=== PATIENT | male | born 1945 | race Caucasian/White ===

== ENCOUNTER 2018-08-22 16:52 | Observation (INO) ==
[2018-08-22 18:12] LABS: Basophils # 0.1 10*3/uL (0.0-0.2); Basophils % 0.6 % (0.0-0.8); Eosinophils # 0.2 10*3/uL (0.0-0.87); Eosinophils % 2.8 % (0.00-10.9); Hematocrit 39.2 VOL% (42.0-52.0); Hemoglobin 13.5 GM/DL (14.0-18.0); Immature Granulocytes % 1.6 %; Immature Granulocytes Absolute 0.13 #; Lymphocytes # 1.7 10*3/uL (1.4-4.0); Lymphocytes % 19.9 % (21.2-54.2); Mean Corpuscular HGB Conc 34.4 GM/DL (32-36); Mean Corpuscular Volume 87.3 FL (87-102); Mean Platelet Volume 11.2 FL (9.6-12.0); Monocytes % 6.7 % (1.7-12.7); Neutrophils % 68.4 % (38.7-73.9); Platelet Count 118 T/CUMM (130-400); Red Blood Count 4.49 MC/CUMM (3.8-5.5); Red Cell Distribution Width 12.7 % (9.3-17.3); White Blood Count 8.4 T/CUMM (4-12)
[2018-08-22 18:28] LABS: Albumin 3.7 G/DL (3.4-5.0); Bilirubin,Total 0.4 MG/DL (0.2-1.0); Calcium 8.4 MG/DL (8.5-10.1); Osmolality,Calculated 286.1 MOS/KG (273-304); Total Protein 6.9 G/DL (6.4-8.3)
[2018-08-22 18:31] LABS: Apearance,Urine CLEAR (Clear); Bilirubin,Urine Negative (Negative); Blood, Urine Negative (Negative); Glucose,Urine (UA) >=500 mg/dL (Negative); Ketones,Urine Negative (Negative); Nitrite,Urine Negative (Negative); Protein,Urine Negative; RBC,Urine <1 /HPF (0-4); Urine Color Straw (Yellow); Urine Specific Gravity 1.021 (1.001-1.035); Urine Urobilinogen < 2.0 EU/DL (0.2-1.0); WBC,Urine <1 /HPF (0-6)
[2018-08-22 18:40] LABS: Barbiturates Screen,Urine Negative (Negative); Benzodiazepines Screen,Urine Negative (Negative); Cannabinoid Screen,Urine Negative (Negative); Opiate Screen,Urine Negative (Negative); Phencyclidine Screen,Urine Negative (Negative)
[2018-08-22] MEDS ORDERED: CEFTAROLINE 600 MG in SODIUM CHLORIDE 0.9% 100 ML IV STA (19:29)
[2018-08-22 19:48] LABS: CKMB % 3.6 %; Troponin I < 0.015 NG/ML (0.00-0.045)
[2018-08-22] MEDS ORDERED: GLUCAGON 1 MG VIAL IM PRN (20:18)
[2018-08-22] MEDS ORDERED: INSULIN REGULAR 100 UNIT/ML IV ONE (20:18)
[2018-08-22] MEDS ORDERED: ONDANSETRON 4 MG/2 ML VIAL IV PRN (20:18)
[2018-08-22] MEDS ORDERED: DEXTROSE 50% 25 GM/50 ML SYRINGE IV PRN (20:18)
[2018-08-22] MEDS ORDERED: ACETAMINOPHEN 325 MG TABLET PO PRN (20:18)
[2018-08-22] MEDS ORDERED: ENOXAPARIN 40 MG/0.4 ML SYRINGE SUBCUT SCH (21:00)
[2018-08-22] MEDS: SODIUM CHLORIDE 0.9% 1,000 ML IV SCH (23:00)
[2018-08-22] MEDS: SULFAMETHOX/TRIMETHOPRIM 800-160 MG TABLET PO SCH (23:01)
[2018-08-22] MEDS: INSULIN REGULAR 100 UNIT/ML SUBCUT SCH (23:23)
[2018-08-22] MEDS ORDERED: diphenhydrAMINE CAP 50 MG CAPSULE PO ONE (23:24)
[2018-08-23 05:10] LABS: Basophils # 0.1 10*3/uL (0.0-0.2); Basophils % 0.9 % (0.0-0.8); Eosinophils # 0.3 10*3/uL (0.0-0.87); Eosinophils % 4.6 % (0.00-10.9); Hematocrit 35.1 VOL% (42.0-52.0); Hemoglobin 12.2 GM/DL (14.0-18.0); Immature Granulocytes % 1.5 %; Lymphocytes # 1.6 10*3/uL (1.4-4.0); Lymphocytes % 23.7 % (21.2-54.2); Mean Corpuscular HGB Conc 34.8 GM/DL (32-36); Mean Corpuscular Volume 86.7 FL (87-102); Mean Platelet Volume 11.1 FL (9.6-12.0); Monocytes % 8.8 % (1.7-12.7); Neutrophils % 60.5 % (38.7-73.9); Red Blood Count 4.05 MC/CUMM (3.8-5.5); Red Cell Distribution Width 12.6 % (9.3-17.3); White Blood Count 6.8 T/CUMM (4-12)
[2018-08-23 05:21] LABS: Platelet Count 95 T/CUMM (130-400)
[2018-08-23 05:30] LABS: Hypochromasia 1+; Platelet Estimate Decreased
[2018-08-23 05:33] LABS: Bilirubin,Total 0.4 MG/DL (0.2-1.0); Calcium 8.5 MG/DL (8.5-10.1); Osmolality,Calculated 282.4 MOS/KG (273-304); Risk Ratio 4.45; Total Protein 5.8 G/DL (6.4-8.3); VLDL CHOLESTEROL 33.2 MG/DL
[2018-08-23] MEDS ORDERED: LISINOPRIL 5 MG TABLET PO SCH (09:00)
[2018-08-23] MEDS: INSULIN REGULAR 100 UNIT/ML SUBCUT SCH ×2 (09:24→12:25)
[2018-08-23] MEDS: SULFAMETHOX/TRIMETHOPRIM 800-160 MG TABLET PO SCH (09:24)
[2018-08-23 12:07] VITALS: BP 176/74
[2018-08-23] MEDS: SODIUM CHLORIDE 0.9% 1,000 ML IV SCH (12:08)
== END 2018-08-23 12:53 | disposition home or self-care (01) ==
LOC: N.ED 16:52 → N.EDINP 16:52 → N.2E 22:01
PROVIDERS: ADMIT Emergency Medicine; ATTEND Emergency Medicine

== ENCOUNTER 2022-02-01 19:14 | Inpatient (IN) ==
[2022-02-01] MEDS ORDERED: SODIUM CHLORIDE 0.9% 500 ML IV STA (20:03)
[2022-02-01] MEDS ORDERED: ONDANSETRON 4 MG/2 ML VIAL IV STA (20:03)
[2022-02-01] MEDS ORDERED: PANTOPRAZOLE 40 MG VIAL IV STA (20:03)
[2022-02-01] MEDS ORDERED: ACETAMINOPHEN 325 MG TABLET PO PRN (21:34)
[2022-02-01] MEDS ORDERED: GLUCAGON 1 MG VIAL IM PRN (21:34)
[2022-02-01] MEDS ORDERED: ONDANSETRON 4 MG/2 ML VIAL IV PRN (21:34)
[2022-02-01] MEDS ORDERED: HYDROmorphone 1 MG/1 ML SYRINGE IV PRN (21:34)
[2022-02-01] MEDS ORDERED: DEXTROSE 10% 250 ML BAG IV PRN (21:53)
[2022-02-01 21:59] LABS: Basophils % 0.2 % (0.0-0.8); Eosinophils % 0.4 % (0.00-10.9); Hematocrit 36.8 VOL% (42.0-52.0); Hemoglobin 11.2 GM/DL (14.0-18.0); Immature Granulocytes % 1.2 %; Immature Granulocytes Absolute 0.11 #; Lymphocytes # 1.2 10*3/uL (1.4-4.0); Lymphocytes % 12.7 % (21.2-54.2); Mean Corpuscular HGB Conc 30.4 GM/DL (32-36); Mean Corpuscular Volume 70.5 FL (87-102); Mean Platelet Volume 10.3 FL (9.6-12.0); Monocytes # 0.7 10*3/uL (0.11-0.8); Monocytes % 7.1 % (1.7-12.7); Neutrophils % 78.4 % (38.7-73.9); Platelet Count 182 T/CUMM (130-400); Red Blood Count 5.22 MC/CUMM (3.8-5.5); Red Cell Distribution Width 18.6 % (9.3-17.3); White Blood Count 9.2 T/CUMM (4-12)
[2022-02-01] MEDS: SODIUM CHLORIDE 0.9% 1,000 ML IV SCH (22:05)
[2022-02-01 22:21] LABS: Albumin 3.4 G/DL (3.4-5.0); Bilirubin,Total 0.5 MG/DL (0.20-1.00); Calcium 8.9 MG/DL (8.5-10.1); Osmolality,Calculated 280.5 MOS/KG (273-304); Potassium 3.8 MMOL/L (3.5-5.1); Total Protein 7.6 G/DL (6.4-8.2)
[2022-02-01] MEDS: PIPERACILLIN/TAZOBACTAM 3,375 MG in SODIUM CHLORIDE 0.9% 100 ML IV SCH (23:10)
[2022-02-02] MEDS: INSULIN REGULAR 100 UNIT/ML SUBCUT SCH ×9 (00:03→21:16)
[2022-02-02 01:13] LABS: Bilirubin,Urine Negative (Negative); Blood, Urine Negative (Negative); Glucose,Urine (UA) >=500 mg/dL (Negative); Ketones,Urine 20 mg/dL (Negative); Mucus,Urine Occasional /LPF (Occasional); Nitrite,Urine Negative (Negative); Protein,Urine Negative (Negative); RBC,Urine 1 /HPF (0-4); Sperm,Urine Few /HPF (Negative); Squamous Epithelial Cell,Urine Occasional /HPF (0-10); Urine Appearance CLEAR (Clear); Urine Color Yellow (Yellow); Urine Specific Gravity 1.035 (1.001-1.035); Urine Urobilinogen < 2.0 eU/dL (<2.0)
[2022-02-02 05:37] LABS: Basophils % 0.3 % (0.0-0.8); Eosinophils # 0.1 10*3/uL (0.0-0.87); Eosinophils % 0.6 % (0.00-10.9); Hematocrit 35.5 VOL% (42.0-52.0); Hemoglobin 10.8 GM/DL (14.0-18.0); Immature Granulocytes % 0.6 %; Immature Granulocytes Absolute 0.06 #; Lymphocytes # 1.2 10*3/uL (1.4-4.0); Lymphocytes % 12.2 % (21.2-54.2); Mean Corpuscular HGB Conc 30.4 GM/DL (32-36); Mean Corpuscular Volume 70.9 FL (87-102); Mean Platelet Volume 10.1 FL (9.6-12.0); Monocytes # 0.8 10*3/uL (0.11-0.8); Monocytes % 8.5 % (1.7-12.7); Neutrophils % 77.8 % (38.7-73.9); Platelet Count 189 T/CUMM (130-400); Red Blood Count 5.01 MC/CUMM (3.8-5.5); Red Cell Distribution Width 18.5 % (9.3-17.3); White Blood Count 9.8 T/CUMM (4-12)
[2022-02-02 05:58] LABS: Albumin 3.3 G/DL (3.4-5.0); Bilirubin,Total 0.7 MG/DL (0.20-1.00); Calcium 8.2 MG/DL (8.5-10.1); Osmolality,Calculated 279.5 MOS/KG (273-304); Potassium 3.7 MMOL/L (3.5-5.1); Total Protein 7.2 G/DL (6.4-8.2)
[2022-02-02] MEDS ORDERED: INFLUENZA VIRUS VACCINE 0.5 ML SYRINGE IM ONE (09:00)
[2022-02-02] MEDS ORDERED: HYDROmorphone 1 MG/1 ML SYRINGE IV PRN (10:33)
[2022-02-02] MEDS ORDERED: ONDANSETRON 4 MG/2 ML VIAL IV PRN (10:33)
[2022-02-02] MEDS: clonazePAM 0.5 MG TABLET PO SCH ×3 (12:13→21:16)
[2022-02-02] MEDS: MEMANTINE 10 MG TABLET PO SCH ×2 (12:14→21:16)
[2022-02-02] MEDS: OXcarbazepine 300 MG TABLET PO SCH ×2 (12:14→21:16)
[2022-02-02] MEDS: DAPAGLIFLOZIN 5 MG TABLET PO SCH (12:15)
[2022-02-02] MEDS: PANTOPRAZOLE 40 MG VIAL IV SCH (12:16)
[2022-02-02] MEDS: ENOXAPARIN 40 MG/0.4 ML SYRINGE SUBCUT SCH (16:45)
[2022-02-02] MEDS: PIPERACILLIN/TAZOBACTAM 3,375 MG in SODIUM CHLORIDE 0.9% 100 ML IV SCH ×3 (16:46→23:29)
[2022-02-02] MEDS: SODIUM CHLORIDE 0.9% 1,000 ML IV SCH ×2 (16:58→17:31)
[2022-02-02] MEDS: DONEPEZIL 10 MG TABLET PO SCH (21:16)
[2022-02-03] MEDS: SODIUM CHLORIDE 0.9% 1,000 ML IV SCH ×4 (00:42→22:08)
[2022-02-03] MEDS: PIPERACILLIN/TAZOBACTAM 3,375 MG in SODIUM CHLORIDE 0.9% 100 ML IV SCH ×3 (05:34→22:54)
[2022-02-03] MEDS: INSULIN REGULAR 100 UNIT/ML SUBCUT SCH ×8 (08:07→20:30)
[2022-02-03] MEDS: PANTOPRAZOLE 40 MG VIAL IV SCH (08:32)
[2022-02-03] MEDS: OXcarbazepine 300 MG TABLET PO SCH ×2 (14:11→20:26)
[2022-02-03] MEDS: DAPAGLIFLOZIN 5 MG TABLET PO SCH (14:11)
[2022-02-03] MEDS: clonazePAM 0.5 MG TABLET PO SCH ×2 (14:11→20:26)
[2022-02-03] MEDS: MEMANTINE 10 MG TABLET PO SCH ×2 (14:11→20:27)
[2022-02-03] MEDS: ENOXAPARIN 40 MG/0.4 ML SYRINGE SUBCUT SCH (14:56)
[2022-02-03] MEDS: DONEPEZIL 10 MG TABLET PO SCH (20:27)
[2022-02-04] MEDS: PIPERACILLIN/TAZOBACTAM 3,375 MG in SODIUM CHLORIDE 0.9% 100 ML IV SCH ×3 (05:42→21:36)
[2022-02-04] MEDS: INSULIN REGULAR 100 UNIT/ML SUBCUT SCH ×8 (07:28→21:41)
[2022-02-04] MEDS: PANTOPRAZOLE 40 MG VIAL IV SCH (10:15)
[2022-02-04] MEDS: DAPAGLIFLOZIN 5 MG TABLET PO SCH (10:15)
[2022-02-04] MEDS: clonazePAM 0.5 MG TABLET PO SCH ×3 (10:15→21:35)
[2022-02-04] MEDS: MEMANTINE 10 MG TABLET PO SCH ×2 (10:16→21:35)
[2022-02-04] MEDS: OXcarbazepine 300 MG TABLET PO SCH ×3 (10:18→21:35)
[2022-02-04] MEDS: SODIUM CHLORIDE 0.9% 1,000 ML IV SCH ×2 (15:14)
[2022-02-04] MEDS: ENOXAPARIN 40 MG/0.4 ML SYRINGE SUBCUT SCH (16:30)
[2022-02-04] MEDS: DONEPEZIL 10 MG TABLET PO SCH (21:35)
[2022-02-05] MEDS: SODIUM CHLORIDE 0.9% 1,000 ML IV SCH ×2 (03:31→15:45)
[2022-02-05] MEDS: PIPERACILLIN/TAZOBACTAM 3,375 MG in SODIUM CHLORIDE 0.9% 100 ML IV SCH ×2 (05:15→15:23)
[2022-02-05] MEDS: INSULIN REGULAR 100 UNIT/ML SUBCUT SCH ×8 (07:42→22:07)
[2022-02-05] MEDS: PANTOPRAZOLE 40 MG VIAL IV SCH (09:14)
[2022-02-05] MEDS: MEMANTINE 10 MG TABLET PO SCH ×2 (09:18→22:04)
[2022-02-05] MEDS: clonazePAM 0.5 MG TABLET PO SCH ×3 (09:18→22:04)
[2022-02-05] MEDS: OXcarbazepine 300 MG TABLET PO SCH ×2 (09:18→22:04)
[2022-02-05] MEDS: DAPAGLIFLOZIN 5 MG TABLET PO SCH (09:18)
[2022-02-05] MEDS: ENOXAPARIN 40 MG/0.4 ML SYRINGE SUBCUT SCH (15:26)
[2022-02-05] MEDS: DONEPEZIL 10 MG TABLET PO SCH (22:04)
[2022-02-06] MEDS: PIPERACILLIN/TAZOBACTAM 3,375 MG in SODIUM CHLORIDE 0.9% 100 ML IV SCH ×2 (01:25→08:48)
[2022-02-06] MEDS: SODIUM CHLORIDE 0.9% 1,000 ML IV SCH ×2 (07:47→12:13)
[2022-02-06] MEDS: INSULIN REGULAR 100 UNIT/ML SUBCUT SCH ×3 (07:47→12:56)
[2022-02-06] MEDS: MEMANTINE 10 MG TABLET PO SCH (08:42)
[2022-02-06] MEDS: DAPAGLIFLOZIN 5 MG TABLET PO SCH (08:42)
[2022-02-06] MEDS: clonazePAM 0.5 MG TABLET PO SCH (08:42)
[2022-02-06] MEDS: OXcarbazepine 300 MG TABLET PO SCH (08:43)
[2022-02-06] MEDS: PANTOPRAZOLE 40 MG VIAL IV SCH (08:48)
[2022-02-06 11:48] VITALS: BP 128/70
[2022-02-06] MEDS ORDERED: DOCUSATE SODIUM 100 MG CAPSULE PO PRN (12:46)
== END 2022-02-06 13:16 | disposition home or self-care (01) | DRG 390 ==
LOC: EDUNIT# → EDBD → N.EDINP 19:14 → N.ED 19:14 → OBSVTOIN 20:04 → N.2W 21:07 → N.3E 02-02 16:44
PROVIDERS: ADMIT Student in an Organized Health Care Education/Training Program; ATTEND Student in an Organized Health Care Education/Training Program